=== PATIENT | female | born 1985 | race African-American/Black ===

== ENCOUNTER 2023-06-24 22:02 | Emergency (ER) | payer SELFPAY ==
[~2023-06-24] VITALS: Ht 170.2 cm; Wt 113.0 kg
[2023-06-24 22:26] VITALS: TEMP 98.4
[2023-06-24] MEDS ORDERED: ALBU18HF12 IH (22:35)
[2023-06-25] MEDS ORDERED: KETOROLAC TROMETHAMINE 30 MG/ML VIAL IM ONE (00:30)
[2023-06-25] MEDS ORDERED: NAPR-1181 PO (00:34)
[2023-06-25] MEDS ORDERED: METH-812 PO (00:34)
[2023-06-25] MEDS: KETOROLAC TROMETHAMINE 60 MG/2 ML VIAL IM ONE (00:38)
[2023-06-25 02:56] VITALS: BP 130/91
[2023-06-25 04:10] VITALS: PULSE 67; RESP 19
== END 2023-06-25 04:15 | disposition home or self-care (01) ==
LOC: EMS 22:02
DX: S62.606A Fracture of unspecified phalanx of right little finger, initial encounter for closed fracture (principal); J45.909 Unspecified asthma, uncomplicated; F17.210 Nicotine dependence, cigarettes, uncomplicated; F12.90 Cannabis use, unspecified, uncomplicated; Z98.51 Tubal ligation status; V89.2XXA Person injured in unspecified motor-vehicle accident, traffic, initial encounter; Y93.89 Activity, other specified; Y92.89 Other specified places as the place of occurrence of the external cause; Y99.8 Other external cause status
CPT/HCPCS: 99285; 71046; 73030; 73130; 72125; 72040; 29130; 96372; J1885